=== PATIENT | male | born 2000 | race Caucasian/White ===

== ENCOUNTER 2019-08-02 12:01 | Emergency (ER) | payer OTHER ==
[~2019-08-02] VITALS: Ht 162.6 cm; Wt 59.0 kg
--- NOTE | 2019-08-02 12:04 | NUR ---
Placed a call to Pt's MD for pain/pump management, awaiting call back from Quinten Espinoza.
--- NOTE | 2019-08-02 12:05 | NUR ---
Pt's mother at the bedside as well as Dr Zamora.
--- NOTE | 2019-08-02 13:15 | NUR ---
Gillespie back from DR Cohn's office, and he is in surgery, and unable to call back.
[2019-08-02 13:22] VITALS: BP 101/60
--- NOTE | 2019-08-02 13:24 | NUR ---
Patient discharged to home in stable conditon. Written and verbal after care instructions given. Patient verbalizes understanding of instructions.
== END 2019-08-02 13:24 | disposition home or self-care (01) ==
LOC: ER 12:01
DX: T85.615A Breakdown (mechanical) of other nervous system device, implant or graft, initial encounter (principal); G80.9 Cerebral palsy, unspecified; Z88.8 Allergy status to other drugs, medicaments and biological substances
CPT/HCPCS: A4663